=== PATIENT | female | born 1950 | race Caucasian/White ===

== ENCOUNTER → 2017-02-26 | Outpatient (CLI) | payer OTHER ==
--- NOTE | 2017-02-26 08:14 | BD ---
EXAMINATION TYPE: MG DEXA axial skeleton. DATE OF EXAM: 02/26/2017 7:39 AM COMPARISON: DEXA bone scan June 09, 2014. CLINICAL HISTORY: post menopausal Height: 5'4 Weight: 205 FRAX RISK QUESTIONS: Alcohol (3 or more units per day): no Family History (Parent hip fracture): no Glucocorticoids (More than 3mos): no (Ex: prednisone, prednisolone, methylprednisolone, dexamethasone, and hydrocortisone). History of Fracture in Adulthood: yes Secondary Osteoporosis: 1. Type 1 Diabetes: no 2. Hyperthyroidism: no 3. Menopause before 45: no 4. Malnutrition: no 5. Chronic liver disease: no Rheumatoid Arthritis: no Current Tobacco Use: no RISK FACTORS HISTORY OF: Other Fractures since Age 52: When: 52age Postmenopausal woman: MEDICATIONS: Thyroid Medications: Which medication: Synthroid How Lon years Additional Medications: cholesterol Additional History: post menopausal EXAM MEASUREMENTS: Bone mineral densitometry was performed using the [email or web address] System. Bone mineral density as measured about the Lumbar spine is: ----- L1-L4(G/cm2): 1.086 T Score Values are as follows: ----- L2: -0.7 ----- L3: -0.7 ----- L4: -1.0 ----- L1-L4: -0.8 Bone mineral density has decreased : -5.3% since study of: 06/09/2014 Bone mineral density about the R hip (g/cm2): 0.892 Bone mineral density about the L hip (g/cm2): 0.865 T Score values are as follows: -----R Neck: -1.2 -----L Neck: -1.1 -----R Total: 0.1 -----L Total: -0.1 Bone mineral density has: Decreased -0.9% since study of: 06/09/2014 IMPRESSION: Osteopenia (T Score between -2.5 and -1 as noted by T score values in bilateral hips is now present. Bone density is decreased or diminished from prior. There is now slightly increased risk of fracture and the patient may be considered for treatment. Re-Screen 2-5 years. NOTE: T-SCORE=SD OF THE YOUNG ADULT MEAN.
== END | disposition home or self-care (01) ==
LOC: RADBDWWP 07:11
PROVIDERS: ATTEND Family Medicine
DX: M85.80 Other specified disorders of bone density and structure, unspecified site (principal); Z78.0 Asymptomatic menopausal state
CPT/HCPCS: 77080

== ENCOUNTER → 2017-05-21 | Outpatient (CLI) | payer OTHER ==
--- NOTE | 2017-05-21 11:28 | MM ---
Reason for exam: screening (asymptomatic). Last mammogram was performed 1 year ago. History: Patient is postmenopausal and is nulliparous. Physical Findings: A clinical breast exam by your physician is recommended on an annual basis and results should be correlated with mammographic findings. MG Screening Mammo w CAD Bilateral CC and MLO view(s) were taken. Prior study comparison: May 15, 2016, bilateral MG screening mammo w CAD. May 13, 2015, bilateral MG screening mammo w CAD. The breast tissue is heterogeneously dense. This may lower the sensitivity of mammography. Stable benign calcifications. There is chronic nodularity bilaterally, stable. No significant changes when compared with prior studies. ASSESSMENT: Benign, BI-RAD 2 RECOMMENDATION: Routine screening mammogram of both breasts in 1 year.
== END | disposition home or self-care (01) ==
LOC: RADMAMWWP 07:04
PROVIDERS: ATTEND Obstetrics & Gynecology
DX: Z12.31 Encounter for screening mammogram for malignant neoplasm of breast (principal)

== ENCOUNTER → 2017-07-04 | Outpatient (CLI) | payer OTHER ==
[2017-07-04 13:47] LABS: Basophils # (A) 0.1 k/uL (0-0.2); Basophils % (A) 1 %; CH 31.3; CHCM 34.7; Eosinophils # (A) 0.1 k/uL (0-0.7); Eosinophils % (A) 1 %; HCT 40.6 % (34.0-46.0); HDW 2.36; HGB 13.5 gm/dL (11.4-16.0); Luc # (Auto) 0.18; Luc % (Auto) 2; Lymphocytes # (A) 2.3 k/uL (1.0-4.8); Lymphocytes % (A) 29 %; MCH 30.2 pg (25.0-35.0); MCHC 33.3 g/dL (31.0-37.0); MCV 90.7 fL (80.0-100.0); Mean Platelet Volume 7.7; Monocytes # (A) 0.4 k/uL (0-1.0); Monocytes % (A) 5 %; Neutrophils # (A) 4.9 k/uL (1.3-7.7); Neutrophils % (A) 62 %; RBC 4.48 m/uL (3.80-5.40); RDW 13.5 % (11.5-15.5); WBC 7.8 k/uL (3.8-10.6); WBC (Perox) 7.53
[2017-07-04 13:59] LABS: ALT 36 U/L (9-52); AST 24 U/L (14-36); Alkaline Phosphatase 82 U/L (38-126); Anion Gap 12 mmol/L; Blood Urea Nitrogen 23 mg/dL (7-17); Carbon Dioxide 23 mmol/L (22-30); Chloride 104 mmol/L (98-107); Cholesterol 268 mg/dL (<200); Glucose 93 mg/dL (74-99); HDL Cholesterol 67 mg/dL (40-60); Non-African American GFR(MDRD) >60 (>60 ml/min/1.73 sqM); Potassium 4.4 mmol/L (3.5-5.1); Sodium 139 mmol/L (137-145); Total Bilirubin 0.5 mg/dL (0.2-1.3); Total Protein 7.3 g/dL (6.3-8.2)
== END | disposition home or self-care (01) ==
LOC: LABWHC1 13:11
PROVIDERS: ATTEND Family Medicine
DX: Z00.00 Encounter for general adult medical examination without abnormal findings (principal)
CPT/HCPCS: 36415; 80053; 80061; 84439; 84443; 85025

== ENCOUNTER → 2017-09-24 | Outpatient (CLI) | payer OTHER ==
--- NOTE | 2017-09-24 14:24 | XR ---
EXAMINATION TYPE: XR cervical spine comp DATE OF EXAM: 09/24/2017 CLINICAL HISTORY: pain COMPARISON: NONE TECHNIQUE: Frontal, lateral, oblique, swimmers, and open mouth view of the cervical spine are obtaine d. FINDINGS: The cervical spine is visualized in its entirety from C1 thru the top of T1 level. It is s atisfactory in alignment without evidence of acute fracture or dislocation. The pre-vertebral soft t issue appears within normal limits. Moderate to severe degenerative narrowing at C5-6 and C6-7. Ventr al and dorsal spondylosis. The C1-C2 articulation is unremarkable on the open mouth view. The obliqu e images are within normal limits. IMPRESSION: No acute fracture or dislocation is seen in the cervical spine.ICD 10 NO FRACTURE, INITI AL EVALUATION
== END | disposition home or self-care (01) ==
LOC: RADXRMAIN 13:38
PROVIDERS: ATTEND Family Medicine
DX: R52 Pain, unspecified (principal)
CPT/HCPCS: 72050

== ENCOUNTER → 2018-06-03 | Outpatient (CLI) | payer MEDICARE, BC, OTHER ==
[2018-06-03 10:00] LABS: Basophils # (A) 0.1 k/uL (0-0.2); Basophils % (A) 1 %; Eosinophils # (A) 0.1 k/uL (0-0.7); Eosinophils % (A) 1 %; HCT 40.4 % (34.0-46.0); HGB 13.2 gm/dL (11.4-16.0); Lymphocytes # (A) 2.3 k/uL (1.0-4.8); Lymphocytes % (A) 36 %; MCH 29.4 pg (25.0-35.0); MCHC 32.7 g/dL (31.0-37.0); MCV 90.1 fL (80.0-100.0); Monocytes # (A) 0.3 k/uL (0-1.0); Monocytes % (A) 5 %; Neutrophils # (A) 3.4 k/uL (1.3-7.7); Neutrophils % (A) 55 %; Platelet Count 220 k/uL (150-450); RBC 4.48 m/uL (3.80-5.40); RDW 12.9 % (11.5-15.5); WBC 6.2 k/uL (3.8-10.6)
[2018-06-03 12:06] LABS: Albumin 4.4 g/dL (3.5-5.0); Potassium 4.8 mmol/L (3.5-5.1); Total Bilirubin 0.3 mg/dL (0.2-1.3); Total Protein 7.1 g/dL (6.3-8.2)
[2018-06-03 12:15] LABS: T4, Free (Free Thyroxine) 1.37 ng/dL (0.78-2.19)
== END | disposition home or self-care (01) ==
LOC: LABWHC1 08:23
PROVIDERS: ATTEND Family Medicine
DX: Z00.00 Encounter for general adult medical examination without abnormal findings (principal)
CPT/HCPCS: 36415; 80053; 80061; 84439; 84443; 85025

== ENCOUNTER → 2018-07-01 | Outpatient (CLI) | payer MEDICARE, BC, OTHER ==
--- NOTE | 2018-07-01 16:34 | BD ---
EXAMINATION TYPE: Axial Bone Density DATE OF EXAM: 07/01/2018 COMPARISON: NONE CLINICAL HISTORY: Height: 62 Weight: 195.1 FRAX RISK QUESTIONS: Alcohol (3 or more units per day): no Family History (Parent hip fracture): no Glucocorticoids (More than 3mos): no (Ex: prednisone, prednisolone, methylprednisolone, dexamethasone, and hydrocortisone). History of Fracture in Adulthood: no Secondary Osteoporosis: 1. Type 1 Diabetes: no 2. Hyperthyroidism: no 3. Menopause before 45: no 4. Malnutrition: no 5. Chronic liver disease: no Rheumatoid Arthritis: no Current Tobacco Use: no RISK FACTORS HISTORY OF: Family History of Osteoporosis: no Active: yes Diet low in dairy products/other sources of calcium: yes Postmenopausal woman: age 52 Lost more than 2 inches in height since high school: just 2 inches MEDICATIONS: crestor, diazide Thyroid Medications: synthroid How Long: long time Additional History: EXAM MEASUREMENTS: Bone mineral densitometry was performed using the [employer] System. Bone mineral density as measured about the Lumbar spine is: ----- L1-L4(G/cm2): 1.112 T Score Values are as follows: ----- L2: -0.7 ----- L3: -0.7 ----- L4: -0.6 ----- L1-L4: -0.6 Bone mineral density has: increased 1.9 % since study of: 02.26.2017 Bone mineral density about the R hip (g/cm2): 0.885 Bone mineral density about the L hip (g/cm2): 0.852 T Score values are as follows: -----R Neck: -1.1 -----L Neck: -1.3 -----R Total: -0.1 -----L Total: -0.1 Bone mineral density has: decreased -1.4 % since study of: 02.26.2017 IMPRESSION: Osteopenia (T Score between -2.5 and -1). There is slightly increased risk of fracture and the patient may be considered for treatment. Re-Screen 2-5 years. NOTE: T-SCORE=SD OF THE YOUNG ADULT MEAN.
--- NOTE | 2018-07-03 12:44 | MM ---
Reason for exam: screening (asymptomatic). Last mammogram was performed 1 year and 1 month ago. History: Patient is postmenopausal and is nulliparous. Physical Findings: A clinical breast exam by your physician is recommended on an annual basis and results should be correlated with mammographic findings. MG Screening Mammo w CAD Bilateral CC and MLO view(s) were taken. Prior study comparison: May 21, 2017, bilateral MG screening mammo w CAD. May 15, 2016, bilateral MG screening mammo w CAD. There are scattered fibroglandular densities. There is chronic nodularity in the right breast. Asymmetric density lateral right breast is more defined. No clear correlate on the MLO view. ASSESSMENT: Incomplete: need additional imaging evaluation, BI-RAD 0 RECOMMENDATION: Special view mammogram of the right breast. If lesion persists on supplemental views, image directed ultrasound is recommended. [facility] will attempt to contact patient to return for supplemental views and ultrasound if indicated.
== END | disposition home or self-care (01) ==
LOC: RADMAMWWP 14:22
PROVIDERS: ATTEND Obstetrics & Gynecology
DX: Z12.31 Encounter for screening mammogram for malignant neoplasm of breast (principal); Z13.820 Encounter for screening for osteoporosis; M85.80 Other specified disorders of bone density and structure, unspecified site; Z78.0 Asymptomatic menopausal state
CPT/HCPCS: 77067; 77080

== ENCOUNTER → 2018-07-09 | Outpatient (CLI) | payer MEDICARE, BC, OTHER ==
--- NOTE | 2018-07-09 09:10 | MM ---
Reason for exam: additional evaluation requested from abnormal screening. Last mammogram was performed less than 1 month ago. History: Patient is postmenopausal and is nulliparous. Physical Findings: Nurse did not find any significant physical abnormalities on exam. MG Work Up Mamm w CAD RT Spot compression CC, spot compression MLO, and ML view(s) were taken of the right breast. Prior study comparison: July 01, 2018, bilateral MG screening mammo w CAD. May 21, 2017, bilateral MG screening mammo w CAD. There are scattered fibroglandular densities. There is chronic nodularity in the right breast. The questioned lateral asymmetric density disperses on spot compression compatible with superimposition shadow. These results were verbally communicated with the patient and result sheet given to the patient on 07/09/18. ASSESSMENT: Negative, BI-RAD 1 RECOMMENDATION: Return to routine screening mammogram schedule for both breasts. MTDD
== END | disposition home or self-care (01) ==
LOC: RADMAMWWP 07:38
PROVIDERS: ATTEND Obstetrics & Gynecology
DX: R92.8 Other abnormal and inconclusive findings on diagnostic imaging of breast (principal)
CPT/HCPCS: 77065

== ENCOUNTER → 2019-06-11 | Outpatient (CLI) | payer MEDICARE, BC ==
--- NOTE | 2019-06-11 16:05 | XR ---
EXAMINATION TYPE: XR lumbar spine 2 or 3V DATE OF EXAM: 06/11/2019 CLINICAL HISTORY: Chronic back pain with no known injury TECHNIQUE: Frontal and lateral images of the lumbar spine are obtained. COMPARISON: None FINDINGS: There are 6 lumbar type vertebral bodies identified. There is mild diffuse osseous deminer alization the transverse processes of L4 and right transverse process of L2 are poorly visualized. Th e lumbar spine shows satisfactory alignment without evidence of acute fracture or dislocation. Verteb ral body heights are preserved however there is multilevel intervertebral disc space narrowing and fa cet arthropathy. Small anterior osteophytes are also seen at multiple levels. IMPRESSION: No acute fracture or malalignment is seen in the lumbar spine. Moderate multilevel degen erative disc disease of the lumbar spine. Incidentally noted 6 lumbar type vertebral bodies. Suboptim al visualization of some of the transverse processes likely from osseous demineralization.
== END | disposition home or self-care (01) ==
LOC: RADXRMAIN 15:38
PROVIDERS: ATTEND Family Medicine
DX: M51.36 Other intervertebral disc degeneration, lumbar region (principal)
CPT/HCPCS: 72100

== ENCOUNTER → 2019-07-14 | Outpatient (CLI) | payer MEDICARE, BC, OTHER ==
--- NOTE | 2019-07-14 10:47 | MM ---
Reason for exam: screening (asymptomatic). Last mammogram was performed 1 year ago. History: Patient is postmenopausal and is nulliparous. Physical Findings: A clinical breast exam by your physician is recommended on an annual basis and results should be correlated with mammographic findings. MG 3D Screening Mammo W/Cad Bilateral CC, MLO, and XCCL view(s) were taken. Prior study comparison: July 09, 2018, right breast MG work up mamm w CAD RT. July 01, 2018, bilateral MG screening mammo w CAD. There are scattered fibroglandular densities. There are benign appearing round linear calcifications bilaterally. There is chronic nodularity in the right breast. Asymmetric breast tissue in the left breast is stable. There is no discrete abnormality. ASSESSMENT: Benign, BI-RAD 2 RECOMMENDATION: Routine screening mammogram of both breasts in 1 year.
== END | disposition home or self-care (01) ==
LOC: RADMAMWWP 07:57
PROVIDERS: ATTEND Obstetrics & Gynecology
DX: Z12.31 Encounter for screening mammogram for malignant neoplasm of breast (principal)
CPT/HCPCS: 77063; 77067

== ENCOUNTER → 2020-07-15 | Outpatient (CLI) | payer MEDICARE, BC ==
--- NOTE | 2020-07-18 11:55 | MM ---
Reason for exam: screening (asymptomatic). Last mammogram was performed 1 year ago. History: Patient is postmenopausal and is nulliparous. Physical Findings: A clinical breast exam by your physician is recommended on an annual basis and results should be correlated with mammographic findings. MG 3D Screening Mammo W/Cad Bilateral CC and MLO view(s) were taken. Prior study comparison: July 14, 2019, bilateral MG 3d screening mammo w/cad. July 09, 2018, right breast MG work up mamm w CAD RT. There are scattered fibroglandular densities. No significant changes when compared with prior studies. ASSESSMENT: Benign, BI-RAD 2 RECOMMENDATION: Routine screening mammogram of both breasts in 1 year.
== END | disposition home or self-care (01) ==
LOC: RADMAMWWP 07:46
PROVIDERS: ATTEND Obstetrics & Gynecology
DX: Z12.31 Encounter for screening mammogram for malignant neoplasm of breast (principal)
CPT/HCPCS: 77063; 77067

== ENCOUNTER → 2021-07-13 | Outpatient (CLI) | payer MEDICARE, BC ==
--- NOTE | 2021-07-13 18:48 | BD ---
EXAMINATION TYPE: Axial Bone Density DATE OF EXAM: 07/13/2021 COMPARISON: 07.01.2018 CLINICAL HISTORY: 70 YR OLD FEMALE......ICD-10 CODE: Z78.0, M85.80, Z12.820 (NO DESCRIPTORS GIVEN) Height: 61.4 Weight: 200 FRAX RISK QUESTIONS: NOTHING TO NOTE HERE RISK FACTORS HISTORY OF: Diet low in dairy products/other sources of calcium: YES Postmenopausal woman: YES, AT AGE 52, COMPLETE Lost more than 2 inches in height since high school: YES Hyperparathyroidism: NO Adrenal Insufficiency: NO MEDICATIONS: Thyroid Medications: YES, SYNTHROID, FOR ABOUT 15 YRS Additional Medications: BP MEDS, CHOLESTEROL MEDS, VIT D AND CALCIUM, ANTI-ANXIETY AND DEPRESSANTS IN THE PAST, NONE NOW Additional History: HYPERTENSION, CHOLESTEROL, EXAM MEASUREMENTS: Bone mineral densitometry was performed using the [employer] System. Bone mineral density as measured about the Lumbar spine is: ----- L1-L4(G/cm2): 1.160 T Score Values are as follows: ----- L1: 0.3 ----- L2: -0.7 ----- L3: -0.3 ----- L4: -0.1 ----- L1-L4: -0.2 Bone mineral density has: Increased 3.2% SINCE: 07.01.2018 STUDY Bone mineral density about the R hip (g/cm2): 1.027 Bone mineral density about the L hip (g/cm2): 1.023 T Score values are as follows: -----R Neck: -1.2 -----L Neck: -1.3 -----R Total: 0.2 -----L Total: 0.1 Bone mineral density has: Increased 2.8% SINCE: 07.01.2018 STUDY FRAX%s: THERE IS A 8.4% CHANCE FOR A MAJOR OSTEOPOROTIC FX AND A 0.9% FOR HIP.....PROBABILITY FOR FX IN 10 YRS TIME IMPRESSION: Osteopenia (T Score between -2.5 and -1). There is slightly increased risk of fracture and the patient may be considered for treatment. Re-Screen 2-5 years. NOTE: T-SCORE=SD OF THE YOUNG ADULT MEAN.
--- NOTE | 2021-07-14 12:11 | MM ---
Reason for exam: screening (asymptomatic). Last mammogram was performed 1 year ago. History: Patient is postmenopausal and is nulliparous. Physical Findings: A clinical breast exam by your physician is recommended on an annual basis and results should be correlated with mammographic findings. MG 3D Screening Mammo W/Cad Bilateral CC and MLO view(s) were taken. XCCL view(s) were taken of the right breast. Prior study comparison: July 15, 2020, bilateral MG 3d screening mammo w/cad. July 14, 2019, bilateral MG 3d screening mammo w/cad. There is chronic nodularity in the right breast. No significant changes when compared with prior studies. ASSESSMENT: Benign, BI-RAD 2 RECOMMENDATION: Routine screening mammogram of both breasts in 1 year.
== END | disposition home or self-care (01) ==
LOC: RADBDWWP 13:05
PROVIDERS: ATTEND Obstetrics & Gynecology
DX: Z12.31 Encounter for screening mammogram for malignant neoplasm of breast (principal); Z13.820 Encounter for screening for osteoporosis; M85.89 Other specified disorders of bone density and structure, multiple sites; Z78.0 Asymptomatic menopausal state
CPT/HCPCS: 77063; 77067; 77080

== ENCOUNTER → 2023-04-04 | Outpatient (CLI) | payer MEDICARE ==
--- NOTE | 2023-04-07 21:50 | MR ---
EXAMINATION TYPE: MR knee RT wo con DATE OF EXAM: 04/04/2023 COMPARISON: Outside radiograph 03/20/2023 HISTORY: 72-year-old female M25.561, Right knee pain. TECHNIQUE: Multiplanar, multisequence imaging of the right knee is performed without IV contrast. FINDINGS: The ACL, PCL, MCL, and LCL complex are intact. Small amount of fluid along the popliteus te ndon sheath. The lateral meniscus is intact with some degenerative signal in the meniscal body. Overall lateral co mpartment articular cartilage volume is maintained. There is an oblique tear at the junction of the posterior horn and body of the medial meniscus. Tear continues into the body of the medial meniscus. Mild superficial irregular cartilage loss throughout the medial compartment. Mild thinning of the patellofemoral compartment articular cartilage volume. Extensor mechanism is intact. Trace effusion within the deep infrapatellar bursa. There is a 2.0 x 1.1 x 3.0 cm area of heterogeneous mildly hyperintense T2 weighted signal occupying the region of the suprapatellar fat pad. Findings are suggestive of fat pad impingement syndrome. How ever, there seems to be some associated mass effect extending towards the lateral gutter and possibly with some subtle erosion onto the upper pole of the patella, sagittal image 22. Otherwise, there is a small joint effusion and a small, minimally leaking, 2.4 cm Paul's cyst. Normal popliteal artery anatomy. Mild generalized muscle atrophy. No suspicious bone marrow replaceme nt. Incidental intrasubstance tear near the origin of the medial head gastrocnemius. IMPRESSION: 1. Oblique tear involving the junction of the posterior horn and body of the medial meniscus extendin g forward into the body of the meniscus. Mild superficial irregular cartilage loss throughout the med ial compartment. 2. Heterogeneous increased signal occupying the region of the suprapatellar fat pad that seems to hav e slight mass effect and suggestion of a subtle bony erosion at the upper pole of the patella. Consid er pannus relating to inflammatory arthropathy or gout. 3. Intrasubstance tear involving the origin of the medial head gastrocnemius. 4. Small joint effusion and small leaking Paul's cyst
== END | disposition home or self-care (01) ==
LOC: RADMRIMAIN 10:38
PROVIDERS: ATTEND Orthopaedic Surgery
DX: M23.221 Derangement of posterior horn of medial meniscus due to old tear or injury, right knee (principal); M25.461 Effusion, right knee; M71.21 Synovial cyst of popliteal space [Baker], right knee

== ENCOUNTER → 2023-04-24 | Outpatient (CLI) | payer MEDICARE ==
[2023-04-24 16:00] LABS: Basophils # (A) 0.07 X 10*3/uL (0.00-0.10); Basophils % (A) 1.1 %; Eosinophils # (A) 0.05 X 10*3/uL (0.04-0.35); Eosinophils % (A) 0.8 %; HCT 44.8 % (37.2-46.3); HGB 14.2 d/dL (12.0-15.0); Lymphocytes # (A) 2.37 X 10*3/uL (0.90-5.00); Lymphocytes % (A) 36.7 %; MCH 29.9 pg (27.0-32.0); MCHC 31.7 d/dL (32.0-37.0); MCV 94.3 FL (80.0-97.0); Mean Platelet Volume 11.9 FL (9.5-12.2); Monocytes # (A) 0.42 X 10*3/uL (0.20-1.00); Monocytes % (A) 6.5 %; NRBC Per 100 WBC 0 X 10*3/uL (0.00-0.01); Neutrophils # (A) 3.54 X 10*3/uL (1.80-7.70); Neutrophils % (A) 54.7 %; Platelet Count 224 X 10*3/uL (140-440); RBC 4.75 X 10*6/uL (4.10-5.20); RDW 12.7 % (11.5-14.5); WBC 6.46 X 10*3/uL (4.50-10.00)
[2023-04-24 16:29] LABS: Anion Gap 11.6 mmol/L (4.00-12.00); Carbon Dioxide 25.4 mmol/L (21.6-31.8); Potassium 4.6 mmol/L (3.5-5.5)
== END | disposition home or self-care (01) ==
LOC: LABPAT 08:20
PROVIDERS: ATTEND Orthopaedic Surgery
DX: Z01.818 Encounter for other preprocedural examination (principal); M23.91 Unspecified internal derangement of right knee; R94.31 Abnormal electrocardiogram [ECG] [EKG]
CPT/HCPCS: 80051; 85025; 93005

== ENCOUNTER 2023-05-08 09:07 | Day surgery (SDC) | payer MEDICARE, OTHER ==
--- NOTE | 2023-05-07 14:27 | HP ---
HISTORY AND PHYSICAL DATE OF SURGERY: 05/08/2023. HISTORY OF PRESENT ILLNESS: Trinidad Wong is a 72-year-old patient seen with progressive right knee pain. Options for treatment were discussed with her. She elected to proceed with right knee arthroscopy. Consent was obtained. PAST MEDICAL HISTORY: Hypothyroidism, hyperlipidemia. PAST SURGICAL HISTORY: Hysterectomy. DAILY MEDICATIONS: Levothyroxine, rosuvastatin, ibuprofen, vitamins. ALLERGIES: None. SOCIAL HISTORY: She denies current tobacco use. PHYSICAL EVALUATION OF THE RIGHT KNEE: Range of motion is 0 to 120 degrees. Mild effusion. Tenderness along the medial joint line. Positive medial Brando's. Ligaments stable. Hip rotation without pain. Distal neurovascular exam intact. DIAGNOSTIC DATA: Right knee radiographs revealed mild osteoarthritis. MRI of right knee revealed medial meniscal tear, effusion, Paul cyst. IMPRESSION: 1. Internal derangement of right knee with medial meniscal tear. 2. Hypothyroidism. 3. Hyperlipidemia. PLAN: Right knee arthroscopy with partial medial meniscectomy and debridement. MMODL / IJN: [id number] /
[~2023-05-08 09:07] MED LIST: DEXAMETHASONE SOD PHOSPHATE 4 MG/ML 1 ML VIAL IV ONE; HYDROmorphone 0.5 MG/0.5 ML SYRINGE IVP PRN; LACTATED RINGERS 1,000 ML IV SCH; LIDOCAINE 1% (10MG/ML) FOR IV START INTRADERMA PRN; MIDAZOLAM 2 MG/2 ML VIAL IV PRN; ONDANSETRON 4 MG/2 ML VIAL IVP ONE
[2023-05-08] MEDS ORDERED: KETOROLAC 15 MG/ML 1 ML VIAL ONE (10:22)
[2023-05-08] MEDS ORDERED: LIDOCAINE 2% INJ 20 MG/ML (2 ML VIAL) ONE (10:22)
[2023-05-08] MEDS ORDERED: fentaNYL (PF) 50 MCG/ML 2 ML AMP ONE (10:22)
[2023-05-08] MEDS ORDERED: PROPOFOL 10 MG/ML 20 ML VIAL IV ONE (10:22)
[2023-05-08] MEDS ORDERED: MIDAZOLAM 2 MG/2 ML VIAL ONE (10:22)
[2023-05-08] MEDS ORDERED: BUPIVACAINE (PF) 0.25% 30 ML VIAL SQ ONE ×2 (10:46→10:55)
--- NOTE | 2023-05-08 11:08 | P.OP ---
Date of Procedure: 05/08/23 Preoperative Diagnosis: Internal derangement right knee Postoperative Diagnosis: 1. Tear medial and lateral meniscus right knee 2. Grade 4 chondromalacia medial femoral condyle right knee 3. Reactive synovitis medial, lateral and patellar compartments right knee Procedure(s) Performed: 1. Arthroscopic partial medial and lateral meniscectomy right knee 2. Arthroscopic microfracture medial femoral condyle right knee 3. Arthroscopic partial synovectomy medial, lateral and suprapatellar compartments right knee Anesthesia: MAGOA, local Surgeon: Adarsh Gamble Estimated Blood Loss (ml): 8 Pathology: none sent Condition: stable Disposition: PACU Indications for Procedure: 72-year-old patient was seen with progressive right knee pain. After having treatment options discussed, she elected to proceed with arthroscopy. Operative Findings: See description of procedure Description of Procedure: Patient was taken to the operative suite. Patient underwent a general anesthetic by the department of anesthesia. Patient was given preoperative antibiotics. The right lower extremity was placed in a well-padded arthroscopic leg morton. The right leg was prepped and draped in the normal sterile orthopedic fashion. A lateral parapatellar and suprapatellar incision was made. Trochars were inserted. Arthroscopy was initiated. Suprapatellar pouch revealed diffuse thick reactive synovitis. The patellofemoral joint appeared to articulate congruently. There was grade 1 chondromalacia of the patella withan osteochondral tears. The scope was guided into the medial gutter. No loose bodies or plica were identified. The scope was then guided into the medial compartment. A medial parapatellar incision was made. Trocar inserted followed by probe. There was a radial tear posterior horn medial meniscus. There were areas of grade 2/3 chondromalacia along the medial femoral condyle with some osteochondral flap tears. I performed a partial medial meniscectomy getting down to stable meniscal tissue. I performed a chondroplasty of the medial femoral condyle getting down to stable osteochondral tissue. I performed a partial synovectomy decompressing the reactive synovitis. I did note near grade 4 chondromalacia weightbearing surface medial femoral condyle measuring about a centimeter diameter. I introduced a microfracture awl. I performed a microfracture to the area of exposed bone penetrating the bone with resultant bleeding of the microfracture site. The residual meniscus was probed and was found to be stable. The residual osteochondral surface was stable. There was good decompression of the synovitis. There was some thick reactive synovitis anteriorly. Scope and probe were then guided into the intercondylar notch. Cruciates were identified, probed and found to be stable. The scope and probe were then guided into lateral compartment. Was a radial tear mid body lateral meniscus. There were grade 1 chondromalacia changes lateral compartment without any significant tears. There was some thick reactive synovitis anteriorly. I performed a partial lateral meniscectomy getting down to stable meniscal tissue. I performed a partial synovectomy decompressing the reactive synovitis. The shaver was now removed. The residual meniscus was stable. There was good decompression of the synovitis. The scope was in guided back into the suprapatellar compartment. I introduced a motorized shaver into the suprapatellar compartment. I performed a partial synovectomy. The shaver was removed. There was good decompression of the synovitis. I took one more look around the entire knee, no residual debris. Instruments were now removed from the joint. The joint was infiltrated with .25% Marcaine. Steri-Strips were applied to the portal sites. Sterile dressings were applied. The patient was placed into a GIGI hose. No tourniquet was utilized. The patient was awakened, transferred to a bed and taken to recovery stable satisfactory condition.
[2023-05-08 11:14] VITALS: TEMP 97
[2023-05-08 11:58] VITALS: RESP 18
[2023-05-08 12:09] VITALS: BP 168/78; PULSE 78
== END 2023-05-08 12:33 | disposition home or self-care (01) ==
LOC: OR 09:07
PROVIDERS: ATTEND Orthopaedic Surgery
DX: S83.241A Other tear of medial meniscus, current injury, right knee, initial encounter (principal); S83.281A Other tear of lateral meniscus, current injury, right knee, initial encounter; M94.261 Chondromalacia, right knee; M65.861 Other synovitis and tenosynovitis, right lower leg; X58.XXXA Exposure to other specified factors, initial encounter; E03.9 Hypothyroidism, unspecified; E78.5 Hyperlipidemia, unspecified; Z79.890 Hormone replacement therapy; Z79.1 Long term (current) use of non-steroidal anti-inflammatories (NSAID); Z79.899 Other long term (current) drug therapy
CPT/HCPCS: 29879; 29880; J2250; J1100; J0690; J2405; J3010; J1885; J2704; J2001

== ENCOUNTER → 2024-01-06 | Outpatient (CLI) | payer MEDICARE, OTHER ==
--- NOTE | 2024-01-07 14:12 | MM ---
Reason for Exam: Screening (asymptomatic). Last screening mammogram was performed 12 month(s) ago. Patient History: Menarche at age 14. Patient has no children. Left ovary removed at age 52. Right ovary removed at age 52. Hysterectomy at age 52. Postmenopausal. Bilateral Reduction. Risk Values: Breana 5 year model risk: 1.9%. NCI Lifetime model risk: 5.4%. Prior Study Comparison: 07/15/2020 Bilateral Screening Mammogram, [facility]. 07/13/2021 Bilateral Screening Mammogram, [facility]. 01/01/2023 Bilateral MG 3D screening mammo w/cad, [facility]. Tissue Density: The breasts are almost entirely fatty. Findings: Analyzed By CAD. There is no suspicious group of microcalcifications or new suspicious mass. Benign-appearing calcifications bilaterally. Overall Assessment: Benign, BI-RAD 2 Management: Screening Mammogram of both breasts in [address] [facility] will attempt to contact patient to return for supplemental views and ultrasound if indicated. Patient should continue monthly self-breast exams. A clinical breast exam by your physician is recommended on an annual basis. This exam should not preclude additional follow-up of suspicious palpable abnormalities. Note on Breana scores and lifetime risk: 1. A Breana score greater than 3% is considered moderate risk. If this is the case, consider specialist referral to assess eligibility for a risk reducing agent. 2. If overall lifetime risk for the development of breast cancer is 20% or higher, the patient may qualify for future screening with alternating mammogram and breast MRI. Electronically signed and approved by: Chad Bonilla DO
== END | disposition home or self-care (01) ==
LOC: RADMAMWWP 07:20
PROVIDERS: ATTEND Family Medicine
DX: Z12.31 Encounter for screening mammogram for malignant neoplasm of breast (principal); Z78.0 Asymptomatic menopausal state
CPT/HCPCS: 77063; 77067

== ENCOUNTER → 2025-02-15 | Outpatient (CLI) | payer MEDICARE ==
--- NOTE | 2025-02-15 09:09 | MM ---
Reason for Exam: Screening (asymptomatic). Last mammogram was performed 1 year(s) and 1 month(s) ago. Patient History: Menarche at age 14. Patient has no children. Left ovary removed at age 52. Right ovary removed at age 52. Hysterectomy at age 52. Postmenopausal. Bilateral Reduction. Risk Values: Breana 5 year model risk: 2.0%. NCI Lifetime model risk: 5.1%. Prior Study Comparison: 07/13/2021 Bilateral Screening Mammogram, [facility]. 01/01/2023 Bilateral MG 3D screening mammo w/cad, [facility]. 01/06/2024 Bilateral MG 3D screening mammo w/cad, [facility]. Tissue Density: The breasts are heterogeneously dense, which may obscure small masses. Findings: Analyzed By CAD. There is no suspicious group of microcalcifications or new suspicious mass in either breast. Overall Assessment: Benign, BI-RAD 2 Management: Screening Mammogram of both breasts in 1 year. . Patient should continue monthly self-breast exams. A clinical breast exam by your physician is recommended on an annual basis. This exam should not preclude additional follow-up of suspicious palpable abnormalities. Note on Breana scores and lifetime risk: 1. A Breana score greater than 3% is considered moderate risk. If this is the case, consider specialist referral to assess eligibility for a risk reducing agent. 2. If overall lifetime risk for the development of breast cancer is 20% or higher, the patient may qualify for future screening with alternating mammogram and breast MRI. [facility], , 02/15/2025 9:06 AM. Electronically signed and approved by: John Villeda M.D. Radiolog[facility]
== END | disposition home or self-care (01) ==
LOC: RADMAMWWP 08:48
PROVIDERS: ATTEND Family Medicine
DX: Z12.31 Encounter for screening mammogram for malignant neoplasm of breast (principal); R92.333 Mammographic heterogeneous density, bilateral breasts; Z78.0 Asymptomatic menopausal state
CPT/HCPCS: 77063; 77067